=== PATIENT | male | born 1935 | race American Indian/Alaskan Native ===

== ENCOUNTER 2020-04-03 16:00 | Emergency (ER) | payer MEDICARE ==
[2020-04-03] MEDS ORDERED: SODIUM CHLORIDE 0.9% 500 ML 500 ML IV ONE (17:22)
--- NOTE | 2020-04-03 17:25 | Emergency Department Report ---
ED General Adult HPI - General Chief complaint: Fall Stated complaint: REPEATED FALLS Time Seen by Provider: 04/03/20 17:19 Source: patient, EMS Mode of arrival: Stretcher Limitations: Altered Mental Status - History of Present Illness Initial comments: CC: frequent falls HPI: This is an 84 yo male without known past medical history who presents with frequent falls. Patient seemed "out of sorts". Patient does not have any complaints. He gives limited history. Additional history obtained from caregiver. Patient actually lives in his private home. He has a caregiver of the last 11 years. He does not have any supportive family. There is an estranged daughter with whom he does not have any contact. Patient has not been to the hospital or doctor in over a decade. No known significant past medical history. Patient drinks 2 glasses of wine daily. Retired general maintenance engineer, lead data architect. Over the last several days he has he has not eaten food or drink liquids. Caregiver found him on the floor. She assumes he was on the floor for several hours. He stated that he was unable to get up. He normally drives. He has been quite independent. Now he is unable to ambulate without assistance. -: Gradual, days(s) (Several days) Radiation: other (Patient denies any discomfort) Severity scale (0 -10): 2 Quality: other (Patient denies any discomfort) Consistency: constant (Frequent falls over last few days) Improves with: none Worsens with: none Associated Symptoms: malaise ED Review of Systems ROS: Stated complaint: REPEATED FALLS Other details as noted in HPI Comment: Unobtainable due to pts medical conditions (Limited due to patient's cooperation, patient's no to all questions) ED Past Medical Hx - Past Medical History Previous Medical History?: No - Social History Smoking Status: Unknown if ever smoked ED Physical Exam - General Limitations: Altered Mental Status General appearance: alert, in no apparent distress, other (appears frail, elderly) - Head Head exam: Present: atraumatic, normocephalic - Eye Eye exam: Present: normal appearance - ENT ENT exam: Present: mucous membranes moist - Neck Neck exam: Present: normal inspection, full ROM - Respiratory Respiratory exam: Present: normal lung sounds bilaterally. Absent: respiratory distress, wheezes, rales, rhonchi - Cardiovascular Cardiovascular Exam: Present: regular rate, normal rhythm, normal heart sounds. Absent: systolic murmur, diastolic murmur, rubs, gallop - GI/Abdominal GI/Abdominal exam: Present: soft. Absent: distended, tenderness, guarding, rebound - Extremities Exam Extremities exam: Present: normal inspection - Neurological Exam Neurological exam: Present: alert, oriented X3 - Psychiatric Psychiatric exam: Present: normal mood, flat affect - Skin Skin exam: Present: warm, dry, intact, normal color. Absent: rash ED Course Vital Signs 04/03/20 17:17 Temperature 98.3 F Pulse Rate 93 H Respiratory 20 Rate Blood Pressure 148/74 [Right] O2 Sat by Pulse 100 Oximetry ED Medical Decision Making - Lab Data Result diagrams: 04/03/20 18:05 Laboratory Results - last 72 hr 04/03/20 18:05 WBC 12.3 H RBC 4.66 Hgb 14.9 Hct 42.5 MCV 91 MCH 32 MCHC 35 H RDW 13.7 Plt Count 336 Lymph % (Auto) 7.0 L [place] % (Auto) 5.9 Eos % (Auto) 0.2 Baso % (Auto) 0.3 Lymph # (Auto) 0.9 L [place] # (Auto) 0.7 Eos # (Auto) 0.0 Baso # (Auto) 0.0 Seg Neutrophils % 86.6 H Seg Neutrophils # 10.6 H - Radiology Data Radiology results: report reviewed CT head/brain wo con INDICATION / CLINICAL INFORMATION: 84 years Male; MAIN. TECHNIQUE: Routine CT head without contrast. All CT scans at this location are performed using CT dose reduction for ALARA by means of automated exposure control. COMPARISON: None. FINDINGS: BRAIN / INTRACRANIAL CONTENTS: Large subdural collection seen on the left-acute on chronic blood products seen. Septations are noted. The subdural collection measures 2.2 cm in maximum thickness. There is significant left to right midline shift with entrapment of the right lateral ventricle noted. Transependymal flow of CSF noted as well. Patient might be at risk for uncal and subfalcine herniation. Decreased attenuation seen in the left thalamic region - ischemic changes in this area cannot be excluded. This may be secondary to mass effect on thalamo-perforators in the region of the brainstem There most likely is some component of atrophy. Mild, nonspecific white matter disease otherwise suggested. CRANIOCERVICAL JUNCTION: No significant abnormality. ORBITS: No significant abnormality of visualized orbits. SINUSES / MASTOIDS: No significant abnormality in the visualized paranasal sinuses or mastoid air cells. ADDITIONAL FINDINGS: None. IMPRESSION: 1. Large subdural collection on the left with associated left to right midline shift as described above in detail. 2. Ischemic changes in the left thalamus cannot be excluded. CT chest wo con INDICATION / CLINICAL INFORMATION: MAIN. TECHNIQUE: All CT scans at this location are performed using CT dose reduction for ALARA by means of automated exposure control. COMPARISON: None available. FINDINGS: 2 mm nodule peripherally in the left upper lobe (image 22). Mild interstitial fibrosis in both lower lobes. No other significant right more abnormality is seen in the lungs. No enlarged mediastinal or hilar lymph nodes are identified. The adrenal glands are normal. Other than degenerative change in the spine, no significant skeletal abnormality is seen. IMPRESSION: 1. 2 mm peripheral nodule in the left upper lobe 2. Mild interstitial fibrosis in both lower lobes 3. No definite acute findings on this exam CT cervical spine without contrast: No signs of acute bony trauma to the cervical spine, there is a large soft tissue mass seen in the left neck submandibular region - Medical Decision Making This is an 84-year-old male without significant past medical history normally independent at baseline. He presents with frequent falls and inability to ambulate. He also has had functional decline. Work-up revealed large subdural hematoma likely traumatic from fall. Patient is GCS 15 but slow to respond. I received verbal report from radiologist who was concerned for risk of herniation. I immediately spoke with Dr. Van neurosurgeon who accepted the patient ER to ER transfer at [facility]. I spoke with transfer nurse who allowed me to speak with ER physician Dr. Caba who accepted the patient in transfer. Critical Care Time: Yes Critical care time in (mins) excluding proc time.: 40 Critical care attestation.: If time is entered above; I have spent that time in minutes in the direct care of this critically ill patient, excluding procedure time. 40 minutes of critical care time excluding procedures were used in the care of the patient. I came immediately to the bedside upon patient's arrival. I obtained history from EMS at the bedside. I discussed treatment plan with the nursing team members. I reviewed electronic record. I kept the family member informed. Patient required multiple interventions and reassessments. I spoke with multiple persons in order to expedite care including: Radiologist, neurosurgeon, transfer nurse, accepting ER physician. ED Disposition Clinical Impression: Subdural hematoma, acute Disposition: DC/TX-70 ANOTHER TYPE HLTHCARE Is pt being admited?: No Does the pt Need Aspirin: No Condition: Stable
--- NOTE | 2020-04-03 18:10 | XRay Report ---
CHEST 1 VIEW INDICATION / CLINICAL INFORMATION: cough. COMPARISON: None available. FINDINGS: SUPPORT DEVICES: None. HEART / MEDIASTINUM: No significant abnormality. LUNGS / PLEURA: No significant pulmonary or pleural abnormality. No pneumothorax. ADDITIONAL FINDINGS: No significant additional findings. IMPRESSION: No acute pulmonary or pleural abnormality Signer Name: Coleman Wang MD FACR Signed: 04/03/2020 6:06 PM Workstation Name: [id number]
--- NOTE | 2020-04-03 18:12 | Cat Scan Report ---
CT chest wo con INDICATION / CLINICAL INFORMATION: MAIN. TECHNIQUE: All CT scans at this location are performed using CT dose reduction for ALARA by means of automated e xposure control. COMPARISON: None available. FINDINGS: 2 mm nodule peripherally in the left upper lobe (image 22). Mild interstitial fibrosis in both lower lobes. No other significant right more abnormality is seen in the lungs. No enlarged mediastinal or h ilar lymph nodes are identified. The adrenal glands are normal. Other than degenerative change in the spine, no significant skeletal abnormality is seen. IMPRESSION: 1. 2 mm peripheral nodule in the left upper lobe 2. Mild interstitial fibrosis in both lower lobes 3. No definite acute findings on this exam Signer Name: Coleman Wang MD FACR Signed: 04/03/2020 6:07 PM Workstation Name: [id number]
--- NOTE | 2020-04-03 18:12 | Cat Scan Report ---
CT head/brain wo con INDICATION / CLINICAL INFORMATION: 84 years Male; MAIN. TECHNIQUE: Routine CT head without contrast. All CT scans at this location are performed using CT dos e reduction for ALARA by means of automated exposure control. COMPARISON: None. FINDINGS: BRAIN / INTRACRANIAL CONTENTS: Large subdural collection seen on the left-acute on chronic blood prod ucts seen. Septations are noted. The subdural collection measures 2.2 cm in maximum thickness. There is significant left to right midline shift with entrapment of the right lateral ventricle noted . Transependymal flow of CSF noted as well. Patient might be at risk for uncal and subfalcine herniat ion. Decreased attenuation seen in the left thalamic region - ischemic changes in this area cannot be excl uded. This may be secondary to mass effect on thalamo-perforators in the region of the brainstem There most likely is some component of atrophy. Mild, nonspecific white matter disease otherwise sugg ested. CRANIOCERVICAL JUNCTION: No significant abnormality. ORBITS: No significant abnormality of visualized orbits. SINUSES / MASTOIDS: No significant abnormality in the visualized paranasal sinuses or mastoid air emily ls. ADDITIONAL FINDINGS: None. IMPRESSION: 1. Large subdural collection on the left with associated left to right midline shift as described abo ve in detail. 2. Ischemic changes in the left thalamus cannot be excluded. CRITICAL RESULT: Exam Completed (TRANSFORMER MOLDER/CDT): 04/03/2020 4:59 PM Exam Reviewed (TRANSFORMER MOLDER/CDT): 5:02 PM Time of Communication (TRANSFORMER MOLDER/CDT): 5:08 PM Licensed Practitioner Receiving Report: Dr. Renae Information confirmed: Yes. Signer Name: Nick Kendrick MD, III Signed: 04/03/2020 6:08 PM Workstation Name: [id number]
[2020-04-03 18:33] LABS: Basophils % (Auto) 0.3 % (0.0-1.8); Eosinophils % (Auto) 0.2 % (0.0-4.3); Hematocrit 42.5 % (35.5-45.6); Hemoglobin 14.9 gm/dl (11.8-15.2); Lymphocytes # (Auto) 0.9 K/mm3 (1.2-5.4); Mean Corpuscular HGB Conc 35 % (32-34); Mean Corpuscular Volume 91 fl (84-94); Monocytes # (Auto) 0.7 K/mm3 (0.0-0.8); Monocytes % (Auto) 5.9 % (0.0-7.3); Platelet Count 336 K/mm3 (140-440); Red Blood Count 4.66 M/mm3 (3.65-5.03); Red Cell Distribution Width 13.7 % (13.2-15.2)
--- NOTE | 2020-04-03 18:52 | Cat Scan Report ---
CT cervical spine wo con INDICATION / CLINICAL INFORMATION: 84 years Male; fall [facility]. TECHNIQUE: Axial CT images of the cervical spine were obtained. Sagittal and coronal reformatted images were pr oduced. All CT scans at this location are performed using CT dose reduction for ALARA by means of aut omated exposure control. COMPARISON: None available. FINDINGS: POST-SURGICAL CHANGES: None. ALIGNMENT: Excessive lordosis seen, most likely related to patient's kyphosis. VERTEBRAE: No signs of fracture. Vertebral bodies are grossly normal in height throughout. Significant osseous foraminal narrowing seen on the left at C3-4, C4-5, and C5-6 related to facet and uncinate hypertrophy. Similar findings seen on the right at the same levels. Moderate facet hypertrophy seen at multiple levels. INTRAVERTEBRAL DISCS: Mild disc disease seen at various levels. No dominant herniation seen. Some deg ree of canal narrowing seen at C2-3, C3-4, C4-5, C5-6. No definitive signs of cord impingement apprec iated. PARASPINAL SOFT TISSUES: No significant abnormality. ADDITIONAL FINDINGS: Scarring type changes seen in the lung apices. Large soft tissue mass seen in the left neck/submandibular region which is only partially visualized on this exam. Follow-up with CT of the neck with contrast, as clinically warranted. Prominent lymph n odes seen bilaterally as well. IMPRESSION: 1. No signs of acute bony trauma to the cervical spine. 2. Large left neck lesion, which is partially visualized on this exam. Postcontrast CT the neck may b e helpful for further evaluation. Associated, bilateral adenopathy noted as well. Signer Name: Nick Kendrick MD, III Signed: 04/03/2020 6:48 PM Workstation Name: [id number]
[2020-04-03] MEDS ORDERED: levETIRAcetam 1000 MG/NS 0.75% 1,000 MG/100 ML BAG IV ONE ×2 (19:03→19:04)
[2020-04-03 19:09] VITALS: BP 152/75
[2020-04-03 19:37] LABS: BUN/Creatinine Ratio 25; Blood Urea Nitrogen 20 mg/dL (9-20); Calcium 9.8 mg/dL (8.4-10.2)
[2020-04-03] MEDS ORDERED: SODIUM CHLORIDE 0.9% 500 ML 500 ML ONE (20:04)
== END 2020-04-03 20:31 | disposition other institution (70) ==
LOC: ED 16:00
DX: S06.5X9A Traumatic subdural hemorrhage with loss of consciousness of unspecified duration, initial encounter (principal); R07.89 Other chest pain; X58.XXXA Exposure to other specified factors, initial encounter; Y93.89 Activity, other specified; Y92.89 Other specified places as the place of occurrence of the external cause; Y99.8 Other external cause status
CPT/HCPCS: 36415; 70450; 71045; 71250; 72125; 80048; 82550; 83880; 85025; 96374; 99285; J1953; J7040